=== PATIENT | male | born 1965 | race Caucasian/White ===

== ENCOUNTER 2018-08-05 09:56 | Outpatient (CLI) | payer OTHER ==
--- NOTE | 2018-08-05 11:00 | CT ---
CT PELVIS WITH IV CONTRAST: HISTORY: Right scrotal mass. Pelvic pain. COMPARISON: 04/11/2016. FINDINGS: Urinary bladder is incompletely distended. No masses are apparent within the pelvis. Iliac vessels are within normal limits. There is marked fluid distention of the right scrotal sac. Testicle appears to be compressed inferio rly by the fluid. IMPRESSION: Large right hydrocele. Cause is not evident. POS: [facility]
== END 2018-08-05 09:57 | disposition home or self-care (01) ==
LOC: BURCT 09:56
PROVIDERS: ATTEND Family Medicine
DX: N50.9 Disorder of male genital organs, unspecified (principal); N43.3 Hydrocele, unspecified
CPT/HCPCS: 72193

== ENCOUNTER 2020-08-27 08:48 | Outpatient (CLI) | payer OTHER ==
[2020-08-27 12:44] LABS: ALT (SGPT) 45 U/L (8-55); AST (SGOT) 64 U/L (5-34); Alkaline Phosphatase 105 U/L (40-110); Anion Gap 15 mmol/L (10-20); BUN (Urea Nitrogen) 6 mg/dL (8.4-25.7); Bilirubin, Total 3.9 mg/dL (0.2-1.2); Calc. Creatinine Clearance 0 mL/min (70-130); Calcium 8.5 mg/dL (7.8-10.44); Carbon Dioxide 24 mmol/L (22-29); Cardiac Risk 3.9 (Less than 4.5); Chloride 97 mmol/L (98-107); Cholesterol 85 mg/dl (< 200 Desired); Glucose 111 mg/dL (70-105); HDL Cholesterol 22 mg/dL (>60 Neg Risk); LDL Cholesterol, Calculated 48 mg/dL; Sodium 132 mmol/L (136-145); Triglycerides 76 mg/dL (Less than 150)
[2020-08-27 13:00] LABS: Thyroid Stimulating Hormone 2.6859 uIU/mL (0.35-4.94)
[2020-08-27 13:35] LABS: #Lymphocytes 1.4 thou/uL (1.20-3.40); #Monocytes 0.5 thou/uL (0.11-0.59); #Neutrophils 5.9 thou/uL (1.40-6.50); %Basophils 0.6 % (0.0-1.0); %Lymphocytes 18.1 % (21.0-51.0); %Monocytes 6.8 % (0.0-10.0); %Neutrophils 74.6 % (42.0-75.0); Hemoglobin 14.3 g/dL (14.0-18.0); MDiff Complete? YES; Macrocytosis SLIGHT = 6-15 cells (100X) (0-5/hpf); Mean Corpuscular HGB CONC 33.7 g/dL (32.0-36.0); Mean Corpuscular Hemoglobin 35.8 pg (27.0-31.0); Mean Platelet Volume 7.9 fL (7.4-10.4); Platelet Count 124 thou/uL (130-400); Platelet Morphology Comment Appears Adequate; RBC Distribution Width 12.4 % (11.5-14.5); White Blood Cell (WBC) Count 7.9 thou/uL (4.8-10.8)
[2020-08-27 18:57] LABS: PSA-Asymptomatic (SCREENING) 0.1 ng/mL (0-4.0)
== END 2020-08-27 08:49 | disposition home or self-care (01) ==
LOC: BURLAB 08:48
PROVIDERS: ATTEND Family Medicine
DX: Z13.6 Encounter for screening for cardiovascular disorders (principal); Z12.5 Encounter for screening for malignant neoplasm of prostate; I10 Essential (primary) hypertension
CPT/HCPCS: 36415; 80050; 80061; G0103

== ENCOUNTER 2021-03-21 15:31 | Outpatient (CLI) | payer OTHER ==
[2021-03-21 19:27] LABS: ALT (SGPT) 44 U/L (8-55); AST (SGOT) 98 U/L (5-34); Albumin 2.3 g/dL (3.5-5.0); Alkaline Phosphatase 87 U/L (40-110); Anion Gap 12 mmol/L (10-20); BUN (Urea Nitrogen) 15 mg/dL (8.4-25.7); Bilirubin, Total 6.2 mg/dL (0.2-1.2); Calc. Creatinine Clearance 0 mL/min (70-130); Calcium 7.3 mg/dL (7.8-10.44); Carbon Dioxide 26 mmol/L (22-29); Chloride 95 mmol/L (98-107); Globulin 4.9 g/dL (2.4-3.5); Glucose 110 mg/dL (70-105); Protein, Total 7.2 g/dL (6.0-8.3); Sodium 129 mmol/L (136-145)
== END 2021-03-21 15:32 | disposition home or self-care (01) ==
LOC: BURLAB 15:31
PROVIDERS: ATTEND Family Medicine
DX: I10 Essential (primary) hypertension (principal)
CPT/HCPCS: 36415; 80053

== ENCOUNTER 2021-04-13 10:29 | Outpatient (CLI) | payer OTHER ==
[2021-04-13 11:36] LABS: ALT (SGPT) 42 U/L (8-55); AST (SGOT) 78 U/L (5-34); Albumin 2.2 g/dL (3.5-5.0); Alkaline Phosphatase 83 U/L (40-110); Anion Gap 13 mmol/L (10-20); BUN (Urea Nitrogen) 12 mg/dL (8.4-25.7); Bilirubin, Total 5.2 mg/dL (0.2-1.2); Calc. Creatinine Clearance 0 mL/min (70-130); Calcium 8.4 mg/dL (7.8-10.44); Carbon Dioxide 24 mmol/L (22-29); Chloride 79 mmol/L (98-107); Globulin 4.3 g/dL (2.4-3.5); Glucose 105 mg/dL (70-105); Potassium 4.5 mmol/L (3.5-5.1); Protein, Total 6.5 g/dL (6.0-8.3)
[2021-04-13 11:47] LABS: #Basophils 0.1 thou/uL (0.0-0.2); #Lymphocytes 1.6 thou/uL (1.20-3.40); #Monocytes 0.8 thou/uL (0.11-0.59); #Neutrophils 5.7 thou/uL (1.40-6.50); %Basophils 1.4 % (0.0-1.0); %Lymphocytes 19.1 % (21.0-51.0); %Monocytes 9.7 % (0.0-10.0); %Neutrophils 69.8 % (42.0-75.0); Hemoglobin 9.6 g/dL (14.0-18.0); Mean Corpuscular HGB CONC 36.2 g/dL (32.0-36.0); Mean Corpuscular Hemoglobin 35.5 pg (27.0-31.0); Mean Corpuscular Volume 98.1 fL (78.0-98.0); Mean Platelet Volume 6.4 fL (7.4-10.4); Platelet Count 155 thou/uL (130-400); RBC Distribution Width 10.6 % (11.5-14.5); White Blood Cell (WBC) Count 8.1 thou/uL (4.8-10.8)
[2021-04-13 12:17] LABS: Anisocytosis MODERATE=16-30 cells (100X) (0-5/hpf); Crenated RBC SLIGHT = 1-5 cells (100X) (None Seen); Hypochromia SLIGHT = 6-15 cells (100X) (0-5/hpf); MDiff Complete? YES; Macrocytosis SLIGHT = 6-15 cells (100X) (0-5/hpf); Platelet Morphology Comment Appears Adequate; Reflex for Review?? NO; Small Platelets MODERATE; Tear Drops SLIGHT = 2-5 cells (100X) (0-1/hpf)
[2021-04-13 14:59] LABS: Sodium 111 mmol/L (136-145)
== END 2021-04-13 10:30 | disposition home or self-care (01) ==
LOC: BURLAB 10:29
PROVIDERS: ATTEND Physician Assistant Medical
DX: I85.00 Esophageal varices without bleeding (principal); K70.30 Alcoholic cirrhosis of liver without ascites; R18.8 Other ascites
CPT/HCPCS: 36415; 80053; 85025

== ENCOUNTER 2021-04-15 14:55 | Emergency (ER) | payer SELFPAY ==
[2021-04-15 15:29] LABS: #Basophils 0.1 thou/uL (0.0-0.2); #Lymphocytes 1.6 thou/uL (1.20-3.40); #Monocytes 0.8 thou/uL (0.11-0.59); %Basophils 1.3 % (0.0-1.0); %Lymphocytes 21.7 % (21.0-51.0); %Monocytes 10.1 % (0.0-10.0); %Neutrophils 66.9 % (42.0-75.0); Hemoglobin 8.2 g/dL (14.0-18.0); Mean Corpuscular HGB CONC 36.9 g/dL (32.0-36.0); Mean Corpuscular Hemoglobin 36.2 pg (27.0-31.0); Mean Corpuscular Volume 98.1 fL (78.0-98.0); Mean Platelet Volume 6.3 fL (7.4-10.4); Platelet Count 135 thou/uL (130-400); RBC Distribution Width 10.5 % (11.5-14.5); Red Blood Cell (RBC) Count 2.26 mill/uL (4.70-6.10); White Blood Cell (WBC) Count 7.4 thou/uL (4.8-10.8)
[2021-04-15 15:32] LABS: MDiff Complete? YES
[2021-04-15 15:34] LABS: INR-International Normal Ratio 2.3; Prothrombin Time 25.4 sec (12.0-14.7)
[2021-04-15 15:35] LABS: PTT 51.6 sec (22.9-36.1)
[2021-04-15 15:44] LABS: ALT (SGPT) 36 U/L (8-55); AST (SGOT) 74 U/L (5-34); Albumin 1.9 g/dL (3.5-5.0); Alkaline Phosphatase 71 U/L (40-110); Anion Gap 11 mmol/L (10-20); BUN (Urea Nitrogen) 14 mg/dL (8.4-25.7); Bilirubin, Total 4.7 mg/dL (0.2-1.2); Calc. Creatinine Clearance 0 mL/min (70-130); Calcium 7.9 mg/dL (7.8-10.44); Carbon Dioxide 22 mmol/L (22-29); Chloride 82 mmol/L (98-107); Globulin 3.5 g/dL (2.4-3.5); Glucose 105 mg/dL (70-105); Lipase 42 U/L (8-78); Protein, Total 5.4 g/dL (6.0-8.3)
[2021-04-15 15:46] LABS: Sodium 111 mmol/L (136-145)
[2021-04-15] MEDS ORDERED: Norepinephrine 4 MG/4 ML VIAL ONE ×2 (15:47→15:48)
[2021-04-15] MEDS ORDERED: Midazolam HCl 2 mg/2 ml Vial ONE (16:07)
[2021-04-15] MEDS ORDERED: Fentanyl 100 MCG/2 ML VIAL ONE ×2 (16:07→17:06)
[2021-04-15] MEDS ORDERED: Midazolam HCl 5 mg/ml Vial ONE (17:06)
[2021-04-15 17:39] LABS: Bilirubin Negative (Negative); Blood, Urine Moderate (Negative); Clarity Clear (Clear); Glucose, Urine (Dipstick) Negative (Negative); Ketone, Urine Negative (Negative); Leukocyte Negative (Negative); Nitrite Negative (Negative); Protein, Urine (Dipstick) Negative (Neg-Trace); Urobilinogen 0.2 mg/dL (Less than 2); pH, Urine 6.5 (5.0-9.0)
[2021-04-15 17:43] LABS: Bacteria/HPF 1+ HPF (None Seen); Squamous Epithelial None Seen HPF (0-3); WBC/HPF 0-3 HPF (0-3)
[2021-04-15 17:45] LABS: SARS-CoV-2 NAA Rapid Test Not Detected (NotDetected)
== END 2021-04-15 17:37 | disposition short-term general hospital (02) ==
LOC: BURERS 14:55
DX: J96.90 Respiratory failure, unspecified, unspecified whether with hypoxia or hypercapnia (principal); R18.8 Other ascites; K72.10 Chronic hepatic failure without coma; E87.1 Hypo-osmolality and hyponatremia; I12.0 Hypertensive chronic kidney disease with stage 5 chronic kidney disease or end stage renal disease; N18.6 End stage renal disease; D63.1 Anemia in chronic kidney disease; Z20.822 Contact with and (suspected) exposure to COVID-19
CPT/HCPCS: 31500; 36415; 70450; 71045; 80053; 81003; 81015; 82140; 83605; 83690; 84484; 85025; 85610; 85730; 93005; 94760; 96365; 96366; 96375; 96376; J2250; J3010; U0002